=== PATIENT | male | born 1950 | race Caucasian/White ===

== ENCOUNTER 2024-08-16 08:34 | Outpatient (CLI) | payer MEDICARE ==
[~2024-08-16 08:34] MED LIST: CHLO25TA2 PO; LOSA-416 PO; MAGN400C PO; TRAM50TA2 PO
== END 2024-08-16 23:59 | disposition home or self-care (01) ==
LOC: MRI02 08:34
PROVIDERS: ATTEND Family Medicine Sports Medicine
DX: M51.17 Intervertebral disc disorders with radiculopathy, lumbosacral region (principal); G57.01 Lesion of sciatic nerve, right lower limb; M16.11 Unilateral primary osteoarthritis, right hip; M47.26 Other spondylosis with radiculopathy, lumbar region; M48.07 Spinal stenosis, lumbosacral region
CPT/HCPCS: 72148

== ENCOUNTER 2025-05-30 11:36 | Emergency (ER) | payer MEDICARE ==
[~2025-05-30] VITALS: Ht 180.3 cm; Wt 88.1 kg
[2025-05-30 11:41] VITALS: BP 132/67; PULSE 51; RESP 16; TEMP 98.2; O2SAT 97
--- NOTE | 2025-05-30 12:16 | RADIOLOGY REPORT ---
AP portable chest CLINICAL INDICATION: traumatic fall FINDINGS: Heart size enlarged with a left ventricular configuration. Aorta is tortuous. No infiltrat es or effusions. There is atelectasis in the left lung base. No acute fractures are seen IMPRESSION: 1. No acute cardiopulmonary or bony pathology
== END 2025-05-30 14:03 | disposition left against medical advice (07) ==
LOC: ER 11:37
DX: R07.81 Pleurodynia (principal); Z53.21 Procedure and treatment not carried out due to patient leaving prior to being seen by health care provider
CPT/HCPCS: 71045